=== PATIENT | male | born 1955 | race Caucasian/White ===

== ENCOUNTER 2017-07-10 17:53 | Emergency (ER) | payer SELFPAY ==
[~2017-07-10] VITALS: Ht 177.8 cm; Wt 83.0 kg
[~2017-07-10 17:53] MED LIST: BACT2OIN TOP; DOXY100T PO; SULF1TAB47 PO; Z.0.NO CURRENT MEDS
[2017-07-10 18:07] VITALS: BP 155/90; PULSE 90; RESP 20; TEMP 97.8; O2SAT 96
[2017-07-10] MEDS ORDERED: LIDOCAINE HCL 1% 50 ML VIAL INFIL ONE (18:30)
[2017-07-10] MEDS ORDERED: TETANUS/DIPHTHERIA TOXOID ADULT 0.5 ML VIAL IM ONE (18:30)
--- NOTE | 2017-07-10 18:37 | RADRPT ---
EXAM DATE/TIME: 07/10/2017 18:19 [facility] COMPARISON: No previous studies available for comparison. INDICATIONS : Fall. ETOH. Forehead laceration. RADIATION DOSE: 69.15 CTDIvol (mGy) MEDICAL HISTORY : Hypertension. SURGICAL HISTORY : None. ENCOUNTER: Initial ACUITY: 1 day PAIN SCALE: 0/10 LOCATION: cranial TECHNIQUE: Multiple contiguous axial images were obtained of the head. Using automated exposure control and adj ustment of the mA and/or kV according to patient size, radiation dose was kept as low as reasonably a chievable to obtain optimal diagnostic quality images. DICOM format image data is available electro nically for review and comparison. FINDINGS: CEREBRUM: The ventricles are normal for age. No evidence of midline shift, mass lesion, hemorrhage or acute in farction. No extra-axial fluid collections are seen. POSTERIOR FOSSA: The cerebellum and brainstem are intact. The 4th ventricle is midline. The cerebellopontine angle i s unremarkable. EXTRACRANIAL: The visualized portion of the orbits is intact. SKULL: The calvaria is intact. No evidence of skull fracture. CONCLUSION: 1. No acute intracranial abnormalities. Mild chronic white matter ischemic changes. Arnol Kern MD on July 10, 2017 at 18:33 Board Certified Radiologist. This report was verified electronically.
--- NOTE | 2017-07-10 18:49 | RADRPT ---
EXAM DATE/TIME: 07/10/2017 18:21 [facility] COMPARISON: No previous studies available for comparison. INDICATIONS : Fall. ETOH. Forehead laceration. RADIATION DOSE: 36.25 CTDIvol (mGy) MEDICAL HISTORY : Hypertension. SURGICAL HISTORY : None. ENCOUNTER: Initial ACUITY: 1 day PAIN SCALE: 0/10 LOCATION: neck TECHNIQUE: Volumetric scanning of the cervical spine was performed. Multiplanar reconstructions in the sagittal, coronal and oblique axial planes were performed. Using automated exposure control and adjustment o f the mA and/or kV according to patient size, radiation dose was kept as low as reasonably achievable to obtain optimal diagnostic quality images. DICOM format image data is available electronically f or review and comparison. FINDINGS: No acute fracture spondylolisthesis. Moderate degenerative disc disease and mild facet arthropathy th roughout the cervical spine. Mild canal and foraminal stenosis at C5-6. No prevertebral soft tissue s welling. CONCLUSION: 1. No acute findings. Moderate degenerative change. Arnol Kern MD on July 10, 2017 at 18:43 Board Certified Radiologist. This report was verified electronically.
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
[2017-07-10 20:47] VITALS: BP 133/87
== END 2017-07-10 20:51 | disposition home or self-care (01) ==
LOC: NEDAMB 17:53
DX: S01.21XA Laceration without foreign body of nose, initial encounter (principal); F10.129 Alcohol abuse with intoxication, unspecified; I10 Essential (primary) hypertension; F17.200 Nicotine dependence, unspecified, uncomplicated; Z23 Encounter for immunization; Y04.2XXA Assault by strike against or bumped into by another person, initial encounter
CPT/HCPCS: 12011; 70450; 72125; 90471; 90714

== ENCOUNTER 2018-02-04 22:18 | Emergency (ER) | payer MEDICARE ==
[~2018-02-04] VITALS: Ht 182.9 cm; Wt 85.0 kg
[2018-02-04 22:26] VITALS: BP 136/86; PULSE 94; RESP 16; TEMP 98.6; O2SAT 96
[2018-02-04] MEDS ORDERED: ASPI81TA23 PO (22:26)
--- NOTE | 2018-02-04 22:57 | RADRPT ---
EXAM DATE/TIME: 02/04/2018 22:35 [facility] COMPARISON: No previous studies available for comparison. INDICATIONS : Trauma, fall. Abrasions to forehead. RADIATION DOSE: 66.34 CTDIvol (mGy) MEDICAL HISTORY : Hypertension. SURGICAL HISTORY : None. ENCOUNTER: Initial ACUITY: 1 day PAIN SCALE: 4/10 LOCATION: cranial TECHNIQUE: Multiple contiguous axial images were obtained of the head. Using automated exposure control and adj ustment of the mA and/or kV according to patient size, radiation dose was kept as low as reasonably a chievable to obtain optimal diagnostic quality images. DICOM format image data is available electro nically for review and comparison. FINDINGS: CEREBRUM: The ventricles are normal for age. No evidence of midline shift, mass lesion, hemorrhage or acute in farction. No extra-axial fluid collections are seen. POSTERIOR FOSSA: The cerebellum and brainstem are intact. The 4th ventricle is midline. The cerebellopontine angle i s unremarkable. EXTRACRANIAL: The visualized portion of the orbits is intact. SKULL: The calvaria is intact. No evidence of skull fracture. CONCLUSION: Normal examination for a patient of this age. Arnol Kern MD on February 04, 2018 at 22:55 Board Certified Radiologist. This report was verified electronically.
--- NOTE | 2018-02-04 22:59 | RADRPT ---
EXAM DATE/TIME: 02/04/2018 22:35 [facility] COMPARISON: No previous studies available for comparison. INDICATIONS : Trauma, fall. Abrasions to forehead. RADIATION DOSE: 19.32 CTDIvol (mGy) MEDICAL HISTORY : Hypertension. SURGICAL HISTORY : None. ENCOUNTER: Initial ACUITY: 1 day PAIN SCALE: 0/10 LOCATION: neck TECHNIQUE: Volumetric scanning of the cervical spine was performed. Multiplanar reconstructions in the sagittal, coronal and oblique axial planes were performed. Using automated exposure control and adjustment o f the mA and/or kV according to patient size, radiation dose was kept as low as reasonably achievable to obtain optimal diagnostic quality images. DICOM format image data is available electronically f or review and comparison. FINDINGS: There is moderate degenerative disc disease. No fracture or spondylolisthesis. No canal stenosis. No prevertebral soft tissue swelling. CONCLUSION: 1. Moderate degenerative disc disease. No acute bony abnormalities. Arnol Kern MD on February 04, 2018 at 22:55 Board Certified Radiologist. This report was verified electronically.
--- NOTE | 2018-02-04 23:00 | RADRPT ---
EXAM DATE/TIME: 02/04/2018 22:35 [facility] COMPARISON: No previous studies available for comparison. INDICATIONS : Trauma, fall. Abrasions to forehead. RADIATION DOSE: 21.96 CTDIvol (mGy) MEDICAL HISTORY : Hypertension. SURGICAL HISTORY : None. ENCOUNTER: Initial ACUITY: 1 day PAIN SCORE: 5/10 LOCATION: facial TECHNIQUE: Volumetric scanning of the facial bones was performed. Using automated exposure control and adjustme nt of the mA and/or kV according to patient size, radiation dose was kept as low as reasonably achiev able to obtain optimal diagnostic quality images. DICOM format image data is available electronicall y for review and comparison. FINDINGS: No acute fracture identified. Globes intact. Mucosal thickening in the paranasal sinuses and the ethm oids and frontal sinus. Mastoids are clear. CONCLUSION: 1. No acute bony abnormality. Arnol Kern MD on February 04, 2018 at 22:57 Board Certified Radiologist. This report was verified electronically.
--- NOTE | 2018-02-04 23:34 | PD ---
HPI Chief Complaint: Alcohol/Drug Intoxication Time Seen by Provider: 22:23 Travel History International Travel<30 days: No Contact w/Intl Traveler<30days: No Traveled to known affect area: No History of Present Illness HPI Patient apparently intoxicated fell onto his left maxillary area he has an abrasion to his left cheek maxillary below the infraorbital area extraocular motions are intact he has no neck pain he is in a c-collar he has abrasions to his knees and he is obviously intoxicated patient is a CAT scan ordered of his head neck and facial bones and will be allowed to sleep CTs are interpreted as negative patient is a poor historian due to alcohol intoxication. Patient [facility] Past Medical History Cardiac Catheterization: Yes COPD: Yes Diminished Hearing: No Hypertension: Yes Myocardial Infarction: Yes Influenza Vaccination: No Social History Alcohol Use: Yes (BEER 3X/WEEK) Tobacco Use: Yes (1 PPD) Substance Use: Yes (marijuana) Allergies-Medications (Allergen,Severity, Reaction): Coded Allergies: No Known Allergies (Verified Allergy, Mild, 02/04/18) Reported Meds & Prescriptions Reported Meds & Active Scripts Active Reported Aspirin EC (Aspirin) 81 Mg Tabdr 81 Mg PO DAILY Review of Systems ROS Limitations: Intoxication Except as stated in HPI: all other systems reviewed are Neg Physical Exam Narrative GENERAL: Obvious alcohol intoxication slurring his words very friendly chatty obvious facial injury abrasion to the left maxillary area SKIN: Warm and dry. HEAD: traumatic to left maxillary area abrasion normocephalic. EYES: Pupils equal and round. No scleral icterus. No injection or drainage. Extraocular motions are intact ENT: No nasal bleeding or discharge. Mucous membranes pink and moist. Maxillary abrasion left side with mild swelling extraocular motions are intact NECK: Trachea midline. No JVD. CARDIOVASCULAR: Regular rate and rhythm. RESPIRATORY: No accessory muscle use. Clear to auscultation. Breath sounds equal bilaterally. GASTROINTESTINAL: Abdomen soft, non-tender, nondistended. Hepatic and splenic margins not palpable. MUSCULOSKELETAL: Extremities without clubbing, cyanosis, or edema. No obvious deformities. NEUROLOGICAL: Awake and alert. No obvious cranial nerve deficits. Motor grossly within normal limits. Five out of 5 muscle strength in the arms and legs. Normal speech. PSYCHIATRIC: Appropriate mood and affect; insight and judgment normal. Data Data Last Documented VS Vital Signs Date Time Temp Pulse Resp B/P (MAP) Pulse Ox O2 Delivery O2 Flow Rate FiO2 02/05/18 06:27 81 16 135/80 (98) 99 02/05/18 04:47 Room Air 02/04/18 22:[address] Brain W/O Iv Contrast(Rout) (02/04/18 22:29) Ct Facial Bones W/O Iv Cont (02/04/18 ) Ct Cerv Spine W/O Contrast (02/04/18 ) Acetaminophen (Tylenol) (02/05/18 01:00) MDM Medical Decision Making Medical Screen Exam Complete: Yes Emergency Medical Condition: Yes Differential Diagnosis Alcohol intoxication versus polysubstance intoxication versus head injury with altered mental status versus personality disorder versus substance abuse versus Narrative Course CT face head and neck are negative c-collar was removed patient is allowed to sleep awakes is ambulatory stable for d/c CT negative for fracture Diagnosis Primary Impression: Facial trauma Qualified Codes: S09.93XA - Unspecified injury of face, initial encounter Additional Impression: Alcohol intoxication Qualified Codes: F10.920 - Alcohol use, unspecified with intoxication, uncomplicated Disposition: 01 DISCHARGE HOME Condition: Carson Reyna MD February 04, 2018 23:34
[2018-02-05 00:44] VITALS: BP 120/80; PULSE 83; RESP 16; O2SAT 98
[2018-02-05] MEDS ORDERED: ACETAMINOPHEN 325 MG TAB PO ONE (01:00)
[2018-02-05 04:47] VITALS: BP 134/79; PULSE 77; RESP 16; O2SAT 95
[2018-02-05 06:27] VITALS: BP 135/80
== END 2018-02-05 06:29 | disposition home or self-care (01) ==
LOC: NEPE 22:18
DX: S00.81XA Abrasion of other part of head, initial encounter (principal); S80.212A Abrasion, left knee, initial encounter; S80.211A Abrasion, right knee, initial encounter; W19.XXXA Unspecified fall, initial encounter
CPT/HCPCS: 70450; 70486; 72125; 99283

== ENCOUNTER 2018-02-28 13:29 | Emergency (ER) | payer MEDICARE ==
[~2018-02-28] VITALS: Ht 182.9 cm; Wt 80.0 kg
[~2018-02-28 13:29] MED LIST changes: +ASPI81TA23 PO; -BACT2OIN TOP; -DOXY100T PO; -SULF1TAB47 PO; -Z.0.NO CURRENT MEDS
[2018-02-28 13:33] VITALS: BP 169/91; PULSE 105; RESP 18; TEMP 98.5; O2SAT 97
[2018-02-28 13:41] VITALS: BP 169/91; PULSE 103; RESP 20; TEMP 98.5; O2SAT 98
[2018-02-28 13:44] VITALS: O2SAT 98
[2018-02-28] MEDS ORDERED: SODIUM CHLOR 0.9% 1000 ML INJ 1,000 ML IV ONE (13:45)
[2018-02-28 14:02] LABS: AUTOMATED NEUTROPHIL # 1.8 TH/MM3 (1.8-7.7); BASOPHIL % 0.8 % (0.0-2.0); EOSINOPHIL # 0.1 TH/MM3 (0-0.4); EOSINOPHIL % 2.1 % (0.0-4.0); HEMATOCRIT 40.4 % (39.0-51.0); HEMOGLOBIN 14.1 GM/DL (13.0-17.0); LYMPH % 35.1 % (9.0-44.0); LYMPHOCYTE # 1.2 TH/MM3 (1.0-4.8); MEAN CELL VOLUME 93.2 FL (80.0-100.0); MEAN CORPUSCULAR HEMOGLOBIN 32.4 PG (27.0-34.0); MEAN CORPUSCULAR HGB CONC 34.8 % (32.0-36.0); MEAN PLATELET VOLUME 7.1 FL (7.0-11.0); MONO % 10.6 % (0.0-8.0); MONOCYTE # 0.4 TH/MM3 (0-0.9); NEUT % 51.4 % (16.0-70.0); PLATELET COUNT 108 TH/MM3 (150-450); RED BLOOD COUNT 4.34 MIL/MM3 (4.50-5.90); RED CELL DISTRIBUTION WIDTH 15.5 % (11.6-17.2); WHITE BLOOD COUNT 3.5 TH/MM3 (4.0-11.0)
--- NOTE | 2018-02-28 14:18 | RADRPT ---
EXAM DATE: 02/28/2018 2:09 PM EDT AGE/SEX: 62 years / Male INDICATIONS: Chest pain. Palpitations. Patient stated he has had a previous heart attack before and today felt the same. CLINICAL DATA: This is the patient's initial encounter. Patient reports that signs and symptoms have been present for 1 day and indicates a pain score of 5/10. MEDICAL/SURGICAL HISTORY: Hypertension. None. COMPARISON: None. FINDINGS: 2 frontal views of the chest demonstrates the lungs to be symmetrically aerated without evidence of m ass, infiltrate or effusion. The cardiomediastinal contours are unremarkable. Osseous structures ar e intact. CONCLUSION: Negative examination. Electronically signed by: Joseph Maldonado MD 02/28/2018 2:16 PM EDT
[2018-02-28 14:19] LABS: INTERNATIONAL NORMALIZED RATIO 1.1 RATIO; PROTHROMBIN TIME - PATIENT 10.8 SEC (9.8-11.6)
[2018-02-28 14:31] LABS: ALBUMIN 3.6 GM/DL (3.4-5.0); AST (GOT) 206 U/L (15-37); BICARBONATE 23.5 MEQ/L (21.0-32.0); BLOOD UREA NITROGEN 11 MG/DL (7-18); CALCIUM 7.9 MG/DL (8.5-10.1); CHLORIDE 109 MEQ/L (98-107); CREATININE 0.81 MG/DL (0.60-1.30); GLOMERULAR FILTRATION RATE 96 ML/MIN (>89); GLUCOSE,RANDOM 88 MG/DL (74-106); MAGNESIUM 2.1 MG/DL (1.5-2.5); SODIUM (NA) 143 MEQ/L (136-145)
[2018-02-28 14:41] LABS: ALKALINE PHOSPHATASE 90 U/L (45-117); ALT (GPT) 74 U/L (12-78); TOTAL BILIRUBIN ADULT 0.3 MG/DL (0.2-1.0); TOTAL PROTEIN 7.3 GM/DL (6.4-8.2); TROPONIN I LESS THAN 0.02 NG/ML (0.02-0.05)
[2018-02-28] MEDS ORDERED: METO25TA3 PO (16:17)
--- NOTE | 2018-02-28 16:24 | PD ---
HPI Chief Complaint: Cardiac Complaint Time Seen by Provider: 13:40 Travel History International Travel<30 days: No Contact w/Intl Traveler<30days: No Traveled to known affect area: No History of Present Illness HPI 62-year-old male that presents to the ED for evaluation of SVT. Patient apparently has been having palpitations and sensation of shortness of breath but his heart moving since this morning. Per patient he woke up around 9:00 this morning with the symptoms. Per patient is very hard for him to walk with the discomfort. Ambulance was called after 1 of his neighbors checked him out and noticed that his heart it was highly elevated. He denies any history of this but he does state that he has a history of heart disease in the past. Denies any chest pain or shortness of breath at this time. Patient was seen by ambulance and they found him to be in SVT in the 190s. Given adenosine 6 mg and did not really fix anything. He was given another dose of 12 mg with conversion into normal sinus rhythm now. Patient completely asymptomatic now. Patient comes here for evaluation of the SVT. Per patient he is never had this before. He does tell me that he was partying yesterday and was drinking a lot and does smell heavily of alcohol. Per patient he last drank around 12:00 last night. He denies any falls or injuries. No chest pain or shortness of breath this time. No other medical issues. The patient with the pain was he felt more like a pressure than anything and his concern was more the shortness of breath. Per patient the pain was 4 out of 10. Currently completely asymptomatic. PFSH Past Medical History Hx Anticoagulant Therapy: Yes (ASPIRIN ) Cardiac Catheterization: Yes Cardiovascular Problems: Yes (2 [place] ) COPD: Yes Diminished Hearing: No Hypertension: Yes Myocardial Infarction: Yes Tetanus Vaccination: < 5 Years Influenza Vaccination: No ?: Not Social History Alcohol Use: Yes (BEER 3X/WEEK) Tobacco Use: Yes (1 PPD) Substance Use: Yes (marijuana) Allergies-Medications (Allergen,Severity, Reaction): Coded Allergies: No Known Allergies (Verified Allergy, Mild, 02/04/18) Reported Meds & Prescriptions Reported Meds & Active Scripts Active Metoprolol Tartrate 25 Mg Tab 25 Mg PO DAILY PRN Reported Aspirin EC (Aspirin) 81 Mg Tabdr 81 Mg PO DAILY Review of Systems Except as stated in HPI: all other systems reviewed are Neg Physical Exam Narrative GENERAL: SKIN: Warm and dry. HEAD: Atraumatic. Normocephalic. EYES: Pupils equal and round. No scleral icterus. No injection or drainage. ENT: No nasal bleeding or discharge. Mucous membranes pink and moist. NECK: Trachea midline. No JVD. CARDIOVASCULAR: Regular rate and rhythm. No murmurs, S3, S4. RESPIRATORY: No accessory muscle use. Clear to auscultation. Breath sounds equal bilaterally. GASTROINTESTINAL: Abdomen soft, non-tender, nondistended. Hepatic and splenic margins not palpable. MUSCULOSKELETAL: Extremities without clubbing, cyanosis, or edema. No obvious deformities. NEUROLOGICAL: Awake and alert. No obvious cranial nerve deficits. Motor grossly within normal limits. Five out of 5 muscle strength in the arms and legs. Normal speech. PSYCHIATRIC: Appropriate mood and affect; insight and judgment normal. Data Data Last Documented VS Vital Signs Date Time Temp Pulse Resp B/P (MAP) Pulse Ox O2 Delivery O2 Flow Rate FiO2 02/28/18 13:44 98 Room Air 02/28/18 13:41 104 20 02/28/18 13:41 98.5 Orders Orders Electrocardiogram (02/28/18 13:41) Complete Blood Count With Diff (02/28/18 13:41) Comprehensive Metabolic Panel (02/28/18 13:41) Ckmb (Isoenzyme) Profile (02/28/18 13:41) Troponin I (02/28/18 13:41) Prothrombin Time / Inr (Pt) (02/28/18 13:41) Act Partial Throm Time (Ptt) (02/28/18 13:41) Magnesium (Mg) (02/28/18 13:41) Thyroid Stimulating Hormone (02/28/18 13:41) Chest, Single Ap (02/28/18 13:41) Iv Access Insert/Monitor (02/28/18 13:41) Ecg Monitoring (02/28/18 13:41) Oximetry (02/28/18 13:41) Alcohol (Ethanol) (02/28/18 13:41) Sodium Chlor 0.9% 1000 Ml Inj (Ns 1000 M (02/28/18 13:45) CKMB (02/28/18 13:50) CKMB% (02/28/18 13:50) Electrocardiogram (5/27/18 ) Ed Discharge Order (02/28/18 16:11) Labs Laboratory Tests Test 02/28/18 13:50 White Blood Count 3.5 TH/MM3 Red Blood Count 4.34 MIL/MM3 Hemoglobin 14.1 GM/DL Hematocrit 40.4 % Mean Corpuscular Volume 93.2 FL Mean Corpuscular Hemoglobin 32.4 PG Mean Corpuscular Hemoglobin Concent 34.8 % Red Cell Distribution Width 15.5 % Platelet Count 108 TH/MM3 Mean Platelet Volume 7.1 FL Neutrophils (%) (Auto) 51.4 % Lymphocytes (%) (Auto) 35.1 % Monocytes (%) (Auto) 10.6 % Eosinophils (%) (Auto) 2.1 % Basophils (%) (Auto) 0.8 % Neutrophils # (Auto) 1.8 TH/MM3 Lymphocytes # (Auto) 1.2 TH/MM3 Monocytes # (Auto) 0.4 TH/MM3 Eosinophils # (Auto) 0.1 TH/MM3 Basophils # (Auto) 0.0 TH/MM3 CBC Comment DIFF FINAL Differential Comment Prothrombin Time 10.8 SEC Prothromb Time International Ratio 1.1 RATIO Activated Partial Thromboplast Time 26.8 SEC Blood Urea Nitrogen 11 MG/DL Creatinine 0.81 MG/DL Random Glucose 88 MG/DL Total Protein 7.3 GM/DL Albumin 3.6 GM/DL Calcium Level 7.9 MG/DL Magnesium Level 2.1 MG/DL Alkaline Phosphatase 90 U/L Aspartate Amino Transf (AST/SGOT) 206 U/L Alanine Aminotransferase (ALT/SGPT) 74 U/L Total Bilirubin 0.3 MG/DL Sodium Level 143 MEQ/L Potassium Level 3.6 MEQ/L Chloride Level 109 MEQ/L Carbon Dioxide Level 23.5 MEQ/L Anion Gap 11 MEQ/L Estimat Glomerular Filtration Rate 96 ML/MIN Total Creatine Kinase 253 U/L Creatine Kinase MB 4.0 NG/ML Troponin I LESS THAN 0.02 NG/ML Thyroid Stimulating Hormone 3rd Gen 2.160 uIU/ML Ethyl Alcohol Level 215 MG/DL [facility] Medical Decision Making Medical Screen Exam Complete: Yes Emergency Medical Condition: Yes Medical Record Reviewed: Yes Interpretation(s) EKG shows sinus tachycardia but no sign of acute ischemia or arrhythmia. Read by me and attending. EKG done at 4:10 PM shows sinus rhythm with no sign of acute ischemia and arrhythmia read by me and attending. Troponin and CK-MB negative. Last Impressions Chest X-Ray 02/28/18 1341 Signed Impressions: CONCLUSION: Negative examination. CBC & BMP Diagram 02/28/18 13:50 Total Protein 7.3, Albumin 3.6, Calcium Level 7.9 L, Magnesium Level 2.1, Alkaline Phosphatase 90, Aspartate Amino Transf (AST/SGOT) 206 H, Alanine Aminotransferase (ALT/SGPT) 74, Total Bilirubin 0.3 Alcohol in the 200s Differential Diagnosis SVT versus tachyarrhythmia versus this arrhythmia versus arrhythmia Narrative Course 62-year-old male that presents to the ED for evaluation of SVT. Patient was properly examined and was found to have signs and symptoms which appear to be consistent with resolved SVT. Review the records from the ambulance and does show SVT. Patient converted after second dose of adenosine 12 mg. Patient completely symptomatic here and now sinus rhythm. Labs were done. Labs and imaging were essentially unremarkable other than for elevated alcohol in the 200s. Patient likely drank more than he is telling us and is likely minimizing his alcoholism. He does have a history of alcohol abuse and has been here for similar in the past. Patient was given IV fluids and his tachycardia improved now back to sinus rhythm with a heart rate in the 80s and 70s. Case was discussed with my attending Dr. Jang who was made aware of all findings and evaluated the patient himself and recommends discharge with prescription for metoprolol. Patient was told that if anything worsens he is to come back to the ED. Patient was told to follow with cath lab. See ED worsening symptoms. Diagnosis Primary Impression: SVT (supraventricular tachycardia) Patient Instructions: General Instructions Additional Instructions: Take medication as prescribed. Follow-up with PCP or cath lab. See ED if worsening symptoms. Limit your alcohol intake as this can cause SVT. Med/Other Pt SpecificInfo: Prescription(s) given Scripts Metoprolol Tartrate (Metoprolol Tartrate) 25 Mg Tab 25 MG PO DAILY Y for RAPID HEART RATE, #30 TAB 0 Refills Prov: Dennis Jang MD 02/28/18 Disposition: 01 DISCHARGE HOME Condition: Stable Chaim Archibald February 28, 2018 16:23
--- NOTE | 2018-02-28 16:33 | EKG ---
Date Performed: 02/28/2018 Time Performed: 13:48:52 PTAGE: 62 years EKG: SINUS TACHYCARDIA LEFT BUNDLE BRANCH BLOCK ABNORMAL ECG NO PREVIOUS TRACING DOCTOR: Krzysztof Roth Interpretating Date/Time 02/28/2018 16:33:25
--- NOTE | 2018-02-28 16:33 | EKG ---
Date Performed: 02/28/2018 Time Performed: 15:49:40 PTAGE: 62 years EKG: Sinus rhythm LEFT BUNDLE BRANCH BLOCK ABNORMAL ECG PREVIOUS TRACING : 02/28/2018 13.48 No significant change from previous tracing noted. DOCTOR: Krzysztof Roth Interpretating Date/Time 02/28/2018 16:32:13
== END 2018-02-28 16:47 | disposition home or self-care (01) ==
LOC: NEPE 13:29
DX: I47.1 Supraventricular tachycardia (principal); I10 Essential (primary) hypertension; F17.200 Nicotine dependence, unspecified, uncomplicated; F12.90 Cannabis use, unspecified, uncomplicated
CPT/HCPCS: 71045; 80053; 80307; 82550; 82552; 83735; 84443; 84484; 85025; 85610; 85730; 93005; 96360; 99285; J7030